=== PATIENT | male | born 1985 | race Caucasian/White ===

== ENCOUNTER 2017-02-14 08:48 | Emergency (ER) | payer OTHER ==
[2017-02-14 08:54] VITALS: BP 121/75
--- NOTE | 2017-02-14 09:41 | ER Document Report ---
HPI - HPI Pain Level: 3 Notes: Patient is a 31-year-old male who presents the ED complaining of an abscess to his right groin 2-1/2 days. Patient states that he gets infected hair follicles on occasion, but usually just go away on their own. Patient states that the abscess did open and had some drainage yesterday. Patient states that he does have pain to the touch as well. Otherwise he still eating and drinking without any problems. He has not noticed any surrounding erythema or streaks. He is still able to perform his ADLs without any difficulty. Denies any fever, headache, chest pain, palpitations, cough, wheeze, shortness of breath, abdominal pain, nausea/vomiting/diarrhea, dysuria, urethral discharge, or other rash. Patient states she is allergic to penicillins which causes a rash. Past medical history significant for mental health issues of which [facility]. Denies any history of MRSA. Denies any recent travel, sick contacts, or illness.+ smoker, denies drugs. - ROS Notes: REVIEW OF SYSTEMS: CONSTITUTIONAL : Denies fever, chills, or sweats. Denies recent illness. EENT: Denies eye, ear, throat, or mouth pain or symptoms. Denies nasal or sinus congestion or discharge. Denies throat, tongue, or mouth swelling or difficulty swallowing. CARDIOVASCULAR: Denies chest pain. Denies palpitations or racing or irregular heart beat. Denies ankle edema. RESPIRATORY: Denies cough, cold, or chest congestion. Denies shortness of breath, difficulty breathing, or wheezing. GASTROINTESTINAL: Denies abdominal pain or distention. Denies nausea, vomiting , or diarrhea. Denies blood in vomitus, stools, or per rectum. Denies black, tarry stools. Denies constipation. GENITOURINARY: Denies difficulty urinating, painful urination, burning, frequency, blood in urine, or discharge. MUSCULOSKELETAL: Denies back or neck pain or stiffness. Denies joint pain or swelling. SKIN: see hpi NEUROLOGICAL: Denies confusion or altered mental status. Denies passing out or loss of consciousness. Denies dizziness or lightheadedness. Denies headache. Denies weakness or paralysis or loss of use of either side. Denies problems with gait or speech. Denies sensory loss, numbness, or tingling. ALL OTHER SYSTEMS REVIEWED AND NEGATIVE. Dictation was performed using Dragon voice recognition software - CARDIOVASCULAR Cardiovascular: DENIES: Chest pain - DERM Skin Color: Normal Past Medical History - Social History Smoking Status: Current Every Day Smoker Family History: Reviewed & Not Pertinent Patient has suicidal ideation: No Patient has homicidal ideation: No - Past Medical History Cardiac Medical History: Reports: Hx Hypertension Renal/ Medical History: Denies: Hx Peritoneal Dialysis Past Surgical History: Reports: Hx Oral Surgery - wisdom teeth Vertical Provider Document - CONSTITUTIONAL Agree With Documented VS: Yes Notes: PHYSICAL EXAMINATION: GENERAL: Well-appearing, well-nourished and in no acute distress. LUNGS: Breath sounds clear to auscultation bilaterally and equal. No wheezes rales or rhonchi. HEART: Regular rate and rhythm without murmurs, rubs, gallops. ABDOMEN: Soft, nontender, nondistended abdomen. No guarding, no rebound. No masses appreciated. Normal bowel sounds present. No CVA tenderness bilaterally. No inguinal lymphadenopathy. Musculoskeletal: Rt LE: FROM to passive/active. Strength 5+/5. Extremities: No cyanosis, clubbing, or edema b/l. Peripheral pulses 2+. Capillary refill less than 3 seconds. NEUROLOGICAL: Normal speech, normal gait. Normal sensory, motor exams PSYCH: Normal mood, normal affect. SKIN: Small 2cm abscess, superficial, and is open. Minimal induration without any surrounding erythema or streaks. No purulent discharge noted. No fluctuant fluid pocket. - INFECTION CONTROL TRAVEL OUTSIDE OF THE [place] IN LAST 30 DAYS: No - RESPIRATORY O2 Sat by Pulse Oximetry: 95 Course - Re-evaluation Re-evalutation: 02/14/17 09:41 Patient is an afebrile, well-hydrated, 31-year-old male who presents to the ED with a small right medial proximal thigh abscess. Vitals are stable. PE otherwise unremarkable. The abscess is found to be superficial and small and is already open. Wound culture was obtained. No I&D warranted at this time. I will still cover him with Keflex and Bactrim to take as directed. Cross- reactivity precautions reviewed due to allergy to penicillins (rash). Wound instructions reviewed with bacitracin. Patient states that he can get a recheck with his PCM in 2-3 days. Return to the ED with any worsening/ concerning symptoms otherwise as reviewed. Low suspicion for any sepsis, lymphangitis, necrotizing fasciitis, or other emergent systemic infection at this time. Advised patient that condition can change from initial presentation he needs more symptoms closely and seek medical attention if worsening. Patient is in agreement. - Vital Signs Vital signs: Temp Pulse Resp BP Pulse Ox 97.9 F 108 H 18 121/75 95 02/14/17 08:53 02/14/17 08:53 02/14/17 08:53 02/14/17 08:53 02/14/17 08:53 Discharge - Discharge Clinical Impression: Abscess Condition: Stable Disposition: HOME, SELF-CARE Instructions: Abscess ([facility]), Cephalexin ([facility]), Trimethoprim-Sulfa ([facility]) Additional Instructions: Do not shower or bathe for 24 hours. After 24 hours she may shower but no submersion of the wound under water. Keep the original dressing on the wound for 24 hours unless the drainage stops through. Change the dressing daily thereafter and use a small amount of triple antibiotic ointment over the open wound. Return to the ED and/or your PCM in 2-3 days for recheck. Monitor for any signs of worsening pain or redness, streaks, fever, chest pain, palpitations , shortness of breath, trouble breathing, abdominal pain, n/v/d, numbness/ tingling, muscle paralysis/weakness, or any other worsening/concerning symptoms otherwise as needed. Take medications as directed. If noticing any generalized rash after starting antibiotics, stop them and seek medical attention as you may be allergic. May then take benadryl/pepcid if needed. Prescriptions: Cephalexin Monohydrate [Keflex 500 mg Capsule] 500 mg PO BID #20 capsule Sulfamethoxazole/Trimethoprim [Bactrim Ds Tablet] 1 each PO BID #20 tablet Referrals: [facility] [Provider Group] - Follow up in 3-5 days
== END 2017-02-14 09:52 | disposition home or self-care (01) ==
LOC: ER 08:48
DX: L02.415 Cutaneous abscess of right lower limb (principal); I10 Essential (primary) hypertension; F17.200 Nicotine dependence, unspecified, uncomplicated; Z88.0 Allergy status to penicillin
CPT/HCPCS: 87070; 87075; 87077; 87205; 99282